=== PATIENT | male | born 1955 | race African-American/Black ===

== ENCOUNTER 2018-10-08 23:39 | Inpatient (IN) | payer MEDICARE, MEDICAID ==
[~2018-10-08] VITALS: Ht 200.7 cm; Wt 160.1 kg
[2018-10-09] MEDS ORDERED: SODIUM CHLORIDE 0.9% 1,000 ML IV ONE (07:50)
[2018-10-09] MEDS ORDERED: KETOROLAC 30MG/ML VIAL IV STA (07:50)
[2018-10-09 09:28] LABS: CHLORIDE 102 mEq/L (98-107); INR 1.2; PROTHROMBIN TIME 12.2 sec (9.1-11.1)
[2018-10-09 09:30] LABS: HEMATOCRIT. 22.8 % (42.0-52.0); HEMOGLOBIN. 7.2 g/dL (14.0-18.0); MEAN CORPUSCULAR HEMOGLOBIN 20.3 pg (28.0-32.0); MEAN CORPUSCULAR VOLUME 64.5 fL (80.0-94.0); MEAN PLATELET VOLUME 7.4 fl (7.4-10.4); PLATELET 584 x1000/uL (130-400); RED BLOOD CELL COUNT 3.53 mill/uL (4.7-6.1); RED CELL DISTRIBUTION WIDTH 18.4 % (11.6-14.6)
[2018-10-09] MEDS ORDERED: IOHEXOL-300 100 ML BOTTLE ONE (11:39)
[2018-10-09 12:21] LABS: NUCLEATED RED BLOOD CELLS 1 /100 WBC
[2018-10-09 12:23] LABS: PLATELET ESTIMATE INCREASED
[2018-10-09] MEDS ORDERED: ONDANSETRON HCL 4MG/2ML INJ IV PRN (12:45)
[2018-10-09] MEDS ORDERED: ACETAMINOPHEN 650MG SUPP PR PRN (12:45)
[2018-10-09] MEDS ORDERED: HYDROCODONE/ACETAMINOPHEN 5/325MG TABLET PO PRN (12:45)
[2018-10-09] MEDS ORDERED: HYDROCODONE/ACETAMINOPHEN 10/325MG TABLET PO PRN (12:45)
[2018-10-09] MEDS ORDERED: MAGNESIUM/ALUMINUM HYDROXIDE/SIMETHICONE 30ML UDC PO PRN (12:45)
[2018-10-09] MEDS ORDERED: DIPHENHYDRAMINE 50MG/ML VIAL IV PRN (12:45)
[2018-10-09] MEDS ORDERED: ACETAMINOPHEN 325MG TABLET PO PRN (12:45)
[2018-10-09] MEDS ORDERED: DOCUSATE SODIUM 100MG CAPSULE PO PRN (12:45)
[2018-10-09] MEDS ORDERED: ACETAMINOPHEN 650MG/20.3ML UDC GT PRN (12:45)
[2018-10-09] MEDS ORDERED: IPRATROPIUM/ALBUTEROL 0.5-3(2.5)MG/3ML NEB INH PRN (12:45)
[2018-10-09] MEDS ORDERED: CLONIDINE 0.1MG TABLET PO PRN (12:45)
[2018-10-09] MEDS ORDERED: GUAIFENESIN 200MG/10ML SUGAR FREE UDC PO PRN (12:45)
[2018-10-09 16:00] VITALS: BP 132/95
[2018-10-09] MEDS ORDERED: IBUP-2030 PO (18:21)
[2018-10-09] MEDS ORDERED: FERR-71 MT (18:22)
[2018-10-09] MEDS: FUROSEMIDE 40MG/4ML VIAL IV SCH (18:37)
[2018-10-09 19:04] VITALS: BP 132/95
[2018-10-09 20:00] VITALS: BP 112/74
[2018-10-09] MEDS ORDERED: NA PHOS,M-B/NA PHOS,DI-BA ENEMA 118ML PR PRN (21:00)
[2018-10-09] MEDS: SODIUM CHLORIDE 0.9% INJ 3ML FLUSH IVF SCH (21:00)
[2018-10-09 23:56] LABS: CLARITY URINE TURBID (CLEAR); COLOR URINE YELLOW (YELLOW); KETONES URINE NEGATIVE (NEGATIVE); LEUKOCYTE ESTERASE URINE NEGATIVE (NEGATIVE); NITRITE URINE POSITIVE (NEGATIVE); OCCULT BLOOD URINE NEGATIVE (NEGATIVE); PH URINE >=9.0 (4.5-8.0); PROTEIN URINE 2+ (NEGATIVE); SPECIFIC GRAVITY URINE 1.019 (1.005-1.030)
[2018-10-10] VITALS: BP 114/76
[2018-10-10 00:13] LABS: *AMPHETAMINES SCREEN URINE NEGATIVE (NEGATIVE); *BARBITURATES SCREEN URINE NEGATIVE (NEGATIVE); *BENZODIAZEPINES SCREEN URINE NEGATIVE (NEGATIVE); *COCAINE SCREEN URINE NEGATIVE (NEGATIVE)
[2018-10-10 00:14] LABS: CANNABINOID URINE SCREEN NEGATIVE (NEGATIVE); METHADONE URINE SCREEN NEGATIVE (NEGATIVE); OPIATES URINE SCREEN NEGATIVE (NEGATIVE); PHENCYCLIDINE URINE SCREEN NEGATIVE (NEGATIVE)
[2018-10-10] MEDS ORDERED: PHENYLEPHRINE/SHK LV/MO/PET,WH RECTAL OINT 28GM PR PRN (01:00)
[2018-10-10 04:00] VITALS: BP 116/81
[2018-10-10] MEDS: SODIUM CHLORIDE 0.9% INJ 3ML FLUSH IVF SCH (06:57)
[2018-10-10] MEDS: FUROSEMIDE 40MG/4ML VIAL IV SCH (09:37)
[2018-10-10 10:00] LABS: CHLORIDE 103 mEq/L (98-107)
[2018-10-10 10:03] LABS: HEMATOCRIT. 22.7 % (42.0-52.0); HEMOGLOBIN. 7.1 g/dL (14.0-18.0); MEAN CORPUSCULAR HEMOGLOBIN 20.1 pg (28.0-32.0); MEAN PLATELET VOLUME 7.5 fl (7.4-10.4); PLATELET 593 x1000/uL (130-400); RED BLOOD CELL COUNT 3.55 mill/uL (4.7-6.1); RED CELL DISTRIBUTION WIDTH 18.9 % (11.6-14.6)
[2018-10-10 10:14] LABS: HDL CHOLESTEROL 54 mg/dL (40-59); LDL CHOLESTEROL 99 mg/dL (5-100)
[2018-10-10 12:14] VITALS: BP 108/72
[2018-10-10 15:00] VITALS: BP 108/72
[2018-10-11 10:55] LABS: PLATELET ESTIMATE INCREASED
== END 2018-10-10 16:15 | disposition home or self-care (01) | DRG 300 ==
LOC: ER 23:40 → 5WST 10-09 12:30 → ENRESERV 10-09 16:24
PROVIDERS: ADMIT Family Medicine; ATTEND Family Medicine
DX: I87.2 Venous insufficiency (chronic) (peripheral) (principal); C20 Malignant neoplasm of rectum; C64.9 Malignant neoplasm of unspecified kidney, except renal pelvis; C78.7 Secondary malignant neoplasm of liver and intrahepatic bile duct; E44.0 Moderate protein-calorie malnutrition; D63.0 Anemia in neoplastic disease; E66.01 Morbid (severe) obesity due to excess calories; I25.10 Atherosclerotic heart disease of native coronary artery without angina pectoris; I73.9 Peripheral vascular disease, unspecified; J45.909 Unspecified asthma, uncomplicated; K42.9 Umbilical hernia without obstruction or gangrene; Z89.421 Acquired absence of other right toe(s); Z93.2 Ileostomy status; Z93.3 Colostomy status; Z68.39 Body mass index [BMI] 39.0-39.9, adult
CPT/HCPCS: 36415; 71045; 74177; 80061; 80305; 83880; 84484; 93005; 93922; 93971; 96361; 96374; 96375; 99291; J1885; J1940; J7030; Q9967

== ENCOUNTER 2018-11-11 23:54 | Emergency (ER) | payer MEDICARE, MEDICAID ==
[~2018-11-11] VITALS: Ht 195.6 cm; Wt 70.0 kg
[~2018-11-11 23:54] MED LIST: FERR-71 MT; IBUP-2030 PO
[2018-11-12 05:20] LABS: HEMATOCRIT. 29.3 % (42.0-52.0); HEMOGLOBIN. 9.2 g/dL (14.0-18.0); MEAN CORPUSCULAR HEMOGLOBIN 21.9 pg (28.0-32.0); MEAN CORPUSCULAR VOLUME 69.6 fL (80.0-94.0); MEAN PLATELET VOLUME 7.3 fl (7.4-10.4); PLATELET 557 x1000/uL (130-400); RED BLOOD CELL COUNT 4.21 mill/uL (4.7-6.1); RED CELL DISTRIBUTION WIDTH 28.3 % (11.6-14.6)
[2018-11-12 05:22] LABS: CHLORIDE 105 mEq/L (98-107)
[2018-11-12 05:24] LABS: INR 1.3; PROTHROMBIN TIME 12.6 sec (9.1-11.1)
[2018-11-12 06:20] LABS: CLARITY URINE CLEAR (CLEAR); COLOR URINE YELLOW (YELLOW); KETONES URINE NEGATIVE (NEGATIVE); LEUKOCYTE ESTERASE URINE 1+ (NEGATIVE); NITRITE URINE NEGATIVE (NEGATIVE); OCCULT BLOOD URINE TRACE (NEGATIVE); PROTEIN URINE 1+ (NEGATIVE); SPECIFIC GRAVITY URINE 1.015 (1.005-1.030); UROBILINOGEN URINE 0.2 E.U./dL (0.2-1.0)
[2018-11-12 06:42] VITALS: BP 124/81
[2018-11-12 10:03] LABS: PLATELET ESTIMATE INCREASED
== END 2018-11-12 06:49 | disposition home or self-care (01) ==
LOC: ER 23:54
DX: R60.9 Edema, unspecified (principal); D64.9 Anemia, unspecified; J45.909 Unspecified asthma, uncomplicated; I10 Essential (primary) hypertension; Z93.3 Colostomy status; Z98.890 Other specified postprocedural states
CPT/HCPCS: 36415; 83880; 87077; 87186; 93005; 93971; 99284

== ENCOUNTER 2019-01-15 18:39 | Inpatient (IN) | payer MEDICARE, MEDICAID ==
[~2019-01-15] VITALS: Ht 195.6 cm; Wt 56.2 kg
[2019-01-15] MEDS ORDERED: SODIUM CHLORIDE 0.9% 1,000 ML IV ONE ×2 (19:07→22:45)
[2019-01-15] MEDS ORDERED: ONDANSETRON HCL 4MG/2ML INJ IV STA (19:07)
[2019-01-15] MEDS ORDERED: MORPHINE SULFATE 4 MG/ML CPJ (NOT FOR IM USE) IV ONE (20:30)
[2019-01-15 23:38] LABS: CHLORIDE 107 mEq/L (98-107)
[2019-01-16] MEDS ORDERED: SODIUM CHLORIDE 0.9% 1,000 ML IV ONE (00:15)
[2019-01-16 00:18] LABS: HEMATOCRIT. 31.3 % (42.0-52.0); HEMOGLOBIN. 9.9 g/dL (14.0-18.0); MEAN CORPUSCULAR VOLUME 79.2 fL (80.0-94.0); MEAN PLATELET VOLUME 7.5 fl (7.4-10.4); PLATELET 579 x1000/uL (130-400); RED BLOOD CELL COUNT 3.95 mill/uL (4.7-6.1)
[2019-01-16 00:49] LABS: PLATELET ESTIMATE INCREASED
[2019-01-16] MEDS ORDERED: DIPHENHYDRAMINE 50MG/ML VIAL IV PRN (01:15)
[2019-01-16] MEDS ORDERED: IPRATROPIUM/ALBUTEROL 0.5-3(2.5)MG/3ML NEB INH PRN (01:15)
[2019-01-16] MEDS ORDERED: LORAZEPAM 2MG/ML CPJ IV PRN (01:15)
[2019-01-16] MEDS ORDERED: ONDANSETRON HCL 4MG/2ML INJ IV PRN (01:15)
[2019-01-16] MEDS ORDERED: ENOXAPARIN 40MG/0.4ML SYR SUBCUT NR (09:30)
[2019-01-16] MEDS ORDERED: PANTOPRAZOLE SODIUM 40 MG/VIAL IV NR (09:30)
[2019-01-16] MEDS: DEXT 5%/0.9% NACL 1,000 ML IV SCH ×5 (10:09→23:50)
[2019-01-16 12:46] LABS: CLARITY URINE CLEAR (CLEAR); COLOR URINE YELLOW (YELLOW); KETONES URINE NEGATIVE (NEGATIVE); LEUKOCYTE ESTERASE URINE NEGATIVE (NEGATIVE); NITRITE URINE POSITIVE (NEGATIVE); OCCULT BLOOD URINE NEGATIVE (NEGATIVE); PROTEIN URINE NEGATIVE (NEGATIVE); SPECIFIC GRAVITY URINE 1.022 (1.005-1.030); UROBILINOGEN URINE 0.2 E.U./dL (0.2-1.0)
[2019-01-16 13:04] VITALS: BP 125/75
[2019-01-16] MEDS: HYDROMORPHONE HCL/PF 2MG/ML CPJ IV PRN (15:32)
[2019-01-16 16:00] VITALS: BP 115/79
[2019-01-16 20:00] VITALS: BP 104/61
[2019-01-17] VITALS: BP 105/71
[2019-01-17 04:00] VITALS: BP 110/77
[2019-01-17 05:34] LABS: HEMATOCRIT. 29.1 % (42.0-52.0); HEMOGLOBIN. 9.1 g/dL (14.0-18.0); MEAN CORPUSCULAR HEMOGLOBIN 25.4 pg (28.0-32.0); MEAN CORPUSCULAR VOLUME 81.1 fL (80.0-94.0); MEAN PLATELET VOLUME 7.7 fl (7.4-10.4); PLATELET 464 x1000/uL (130-400); RED BLOOD CELL COUNT 3.59 mill/uL (4.7-6.1); RED CELL DISTRIBUTION WIDTH 23.5 % (11.6-14.6)
[2019-01-17 07:01] LABS: CHLORIDE 112 mEq/L (98-107)
[2019-01-17 07:07] LABS: PHOSPHORUS 2.1 mg/dL (2.5-4.9)
[2019-01-17 08:00] VITALS: BP 98/56
[2019-01-17] MEDS: DEXT 5%/0.9% NACL 1,000 ML IV SCH (09:11)
[2019-01-17] MEDS: PANTOPRAZOLE SODIUM 40 MG/VIAL IV SCH (09:11)
[2019-01-17] MEDS: ENOXAPARIN 40MG/0.4ML SYR SUBCUT SCH (09:22)
[2019-01-17] MEDS ORDERED: MAGNESIUM 2 G PREMIX 50 ML IV SCH (11:00)
[2019-01-17] MEDS ORDERED: POTASSIUM PHOS,M-BASIC-D-BASIC 20 MMOL in DEXT 5% WATER 243.3333 ML IV SCH (11:30)
[2019-01-17 12:00] VITALS: BP 100/76
[2019-01-17 14:12] LABS: PLATELET ESTIMATE INCREASED
[2019-01-17 16:00] VITALS: BP 95/67
[2019-01-17 20:00] VITALS: BP 123/75
[2019-01-17] MEDS: HYDROMORPHONE HCL/PF 2MG/ML CPJ IV PRN (21:55)
[2019-01-18] VITALS: BP 112/81
[2019-01-18] MEDS: DEXT 5%/0.9% NACL 1,000 ML IV SCH ×3 (01:24→20:46)
[2019-01-18 04:00] VITALS: BP 102/68
[2019-01-18 08:00] VITALS: BP 110/78
[2019-01-18] MEDS: PANTOPRAZOLE SODIUM 40 MG/VIAL IV SCH (09:05)
[2019-01-18] MEDS: ENOXAPARIN 40MG/0.4ML SYR SUBCUT SCH (09:05)
[2019-01-18 12:00] VITALS: BP 100/98
[2019-01-18 12:12] LABS: CHLORIDE 111 mEq/L (98-107)
[2019-01-18 12:17] LABS: PHOSPHORUS 2.1 mg/dL (2.5-4.9)
[2019-01-18 16:00] VITALS: BP 110/70
[2019-01-18 20:00] VITALS: BP 105/72
[2019-01-18] MEDS: HYDROMORPHONE HCL/PF 2MG/ML CPJ IV PRN (20:25)
[2019-01-19] VITALS: BP 110/76
[2019-01-19] MEDS ORDERED: POTASSIUM PHOS,M-BASIC-D-BASIC 20 MMOL in DEXT 5% WATER 243.3333 ML IV NR (02:00)
[2019-01-19 03:51] VITALS: BP 124/79
[2019-01-19 08:00] VITALS: BP 110/73
[2019-01-19 08:02] VITALS: BP 110/73
[2019-01-19 08:30] VITALS: BP 110/73
== END 2019-01-19 09:00 | disposition home or self-care (01) | DRG 682 ==
LOC: ER 18:52 → 8WST 01-16 00:43 → EDBEDREQTM 01-16 00:47 → EDBEDREQ 01-16 00:47 → EDBEDREQDT 01-16 00:47 → ENRESERV 01-16 11:50
PROVIDERS: ADMIT Internal Medicine; ATTEND Internal Medicine
DX: N17.9 Acute kidney failure, unspecified (principal); E43 Unspecified severe protein-calorie malnutrition; E87.1 Hypo-osmolality and hyponatremia; C20 Malignant neoplasm of rectum; Z68.1 Body mass index [BMI] 19.9 or less, adult; E86.0 Dehydration; D63.8 Anemia in other chronic diseases classified elsewhere; E87.5 Hyperkalemia; I10 Essential (primary) hypertension; J45.909 Unspecified asthma, uncomplicated; Z93.3 Colostomy status; Z79.1 Long term (current) use of non-steroidal anti-inflammatories (NSAID); Z93.2 Ileostomy status; Z79.899 Other long term (current) drug therapy; Z87.891 Personal history of nicotine dependence
CPT/HCPCS: 36415; 80048; 83605; 83735; 84100; 84132; 93005; 99285; C9113; J1170; J1650; J2270; J2405; J3475; J3490; J7030; J7042; J7060

== ENCOUNTER 2019-02-17 10:42 | Inpatient (IN) | payer MEDICARE, MEDICAID ==
[~2019-02-17] VITALS: Ht 175.3 cm; Wt 79.4 kg
[2019-02-17] VITALS (43 sets, daily range): BP systolic 65–135; BP diastolic 44–80
[2019-02-17] MEDS ORDERED: SODIUM CHLORIDE 0.9% 1,000 ML IV ONE (11:03)
[2019-02-17] MEDS ORDERED: DEXTROSE 50% WATER 50ML SYRINGE IV ONE ×3 (11:07→11:15)
[2019-02-17] MEDS ORDERED: FAMOTIDINE 20MG/2ML VIAL IV ONE (11:15)
[2019-02-17] MEDS ORDERED: SUCCINYLCHOLINE CHLORIDE 200MG/10ML IV ONE (11:15)
[2019-02-17] MEDS ORDERED: ETOMIDATE 2MG/ML 10ML VIAL IV ONE (11:15)
[2019-02-17 12:05] LABS: MEAN CORPUSCULAR HEMOGLOBIN 26.7 pg (28.0-32.0); RED BLOOD CELL COUNT 1.94 mill/uL (4.7-6.1); RED CELL DISTRIBUTION WIDTH 18.7 % (11.6-14.6)
[2019-02-17 12:11] LABS: CHLORIDE 119 mEq/L (98-107)
[2019-02-17 12:14] LABS: INR 2.7; PARTIAL THROMBOPLASTIN TIME 47.9 sec (23.4-31.0); PROTHROMBIN TIME 26.3 sec (9.6-11.0)
[2019-02-17 12:15] LABS: CLARITY URINE CLOUDY (CLEAR); COLOR URINE YELLOW (YELLOW); ETHANOL BLOOD < 10 mg/dL; KETONES URINE NEGATIVE (NEGATIVE); LEUKOCYTE ESTERASE URINE NEGATIVE (NEGATIVE); NITRITE URINE NEGATIVE (NEGATIVE); OCCULT BLOOD URINE 3+ (NEGATIVE); PROTEIN URINE NEGATIVE (NEGATIVE); SPECIFIC GRAVITY URINE 1.015 (1.005-1.030); UROBILINOGEN URINE 0.2 E.U./dL (0.2-1.0)
[2019-02-17 12:16] LABS: HEMATOCRIT. 15.7 % (42.0-52.0); HEMOGLOBIN. 5.2 g/dL (14.0-18.0)
[2019-02-17 12:23] LABS: *AMPHETAMINES SCREEN URINE NEGATIVE (NEGATIVE); CANNABINOID URINE SCREEN NEGATIVE (NEGATIVE); OPIATES URINE SCREEN NEGATIVE (NEGATIVE); PHENCYCLIDINE URINE SCREEN NEGATIVE (NEGATIVE)
[2019-02-17 12:24] LABS: *BARBITURATES SCREEN URINE NEGATIVE (NEGATIVE); *BENZODIAZEPINES SCREEN URINE NEGATIVE (NEGATIVE); *COCAINE SCREEN URINE PRESUMTIVE POSITIVE (NEGATIVE); METHADONE URINE SCREEN NEGATIVE (NEGATIVE)
[2019-02-17 12:58] LABS: BG BASE EXCESS -11.5 mmol/L (-2.0-2.0); BG CARBOXYHEMOGLOBIN 1.3 % (0.5-1.5); BG DEOXYHEMOGLOBIN 0.2 % (0.0-5.0); BG FRACTION INSPIRED OXYGEN 100; BG METHEMOGLOBIN 0.5 % (0.0-1.5); BG OXYGEN SATURATION 99.8 % (92.0-98.5); BG PCO2 29.8 mmHg (35.0-45.0); BG PO2 > 602.7 mmHg (75.0-100.0); BG SAMPLE SITE RIGHT RADIAL; BG TIDAL VOLUME(mL) 500 mL; BG TOTAL HEMOGLOBIN 6.2 g/dL (12.0-18.0); BG VENT MODE VENT - A/C; BG VENT RATE 16 set
[2019-02-17 12:59] LABS: NUCLEATED RED BLOOD CELLS 4 /100 WBC
[2019-02-17] MEDS ORDERED: PANTOPRAZOLE SODIUM 40 MG/VIAL IV NR (13:00)
[2019-02-17] MEDS ORDERED: PHYTONADIONE 10 MG in DEXTROSE 5% WATER 50 ML IV ONE (13:00)
[2019-02-17 13:01] LABS: MEAN PLATELET VOLUME 9.5 fl (7.4-10.4); PLATELET 71 x1000/uL (130-400); PLATELET ESTIMATE DECREASED
[2019-02-17] MEDS: PANTOPRAZOLE 80 MG in SODIUM CHLORIDE 0.9% 100 ML IV SCH ×2 (14:00→19:39)
[2019-02-17] MEDS ORDERED: DOCUSATE SODIUM 100MG CAPSULE PO PRN (14:30)
[2019-02-17] MEDS ORDERED: IPRATROPIUM/ALBUTEROL 0.5-3(2.5)MG/3ML NEB INH PRN (14:30)
[2019-02-17] MEDS ORDERED: ACETAMINOPHEN 650MG SUPP PR PRN (14:30)
[2019-02-17] MEDS ORDERED: ONDANSETRON HCL 4MG/2ML INJ IV PRN (14:30)
[2019-02-17] MEDS ORDERED: DIPHENHYDRAMINE 50MG/ML VIAL IV PRN (14:30)
[2019-02-17] MEDS ORDERED: GUAIFENESIN 200MG/10ML SUGAR FREE UDC PO PRN (14:30)
[2019-02-17] MEDS ORDERED: PHYTONADIONE 10MG/ML AMP ONE (14:37)
[2019-02-17] MEDS ORDERED: PROPOFOL 10MG/ML 100ML 100 ML IV SCH (14:45)
[2019-02-17] MEDS: DEXT 5%/0.45% NACL 1000ML 1,000 ML IV SCH (15:00)
[2019-02-17 15:04] LABS: PHOSPHORUS 4.9 mg/dL (2.5-4.9)
[2019-02-17 16:12] LABS: BG BASE EXCESS -9.1 mmol/L (-2.0-2.0); BG CARBOXYHEMOGLOBIN 0.8 % (0.5-1.5); BG DEOXYHEMOGLOBIN 0.7 % (0.0-5.0); BG FRACTION INSPIRED OXYGEN 50; BG HCO3 ACT 15.4 mmol/L (22.0-26.0); BG METHEMOGLOBIN 0.5 % (0.0-1.5); BG OXYGEN SATURATION 99.3 % (92.0-98.5); BG PCO2 27.6 mmHg (35.0-45.0); BG PH 7.365 (7.350-7.450); BG PO2 220.7 mmHg (75.0-100.0); BG SAMPLE SITE RIGHT BRACHIAL; BG TIDAL VOLUME(mL) 500 mL; BG TOTAL HEMOGLOBIN 6.1 g/dL (12.0-18.0); BG VENT MODE VENT - A/C; BG VENT RATE 16 set
[2019-02-17] MEDS ORDERED: PROPOFOL 10MG/ML 100ML 100 ML IV PRN (16:45)
[2019-02-17] MEDS ORDERED: IPRATROPIUM/ALBUTEROL 0.5-3(2.5)MG/3ML NEB HHN PRN (16:45)
[2019-02-17] MEDS: NOREPINEPHRINE 32 MG in DEXT 5% WATER 468 ML IV PRN (18:11)
[2019-02-17] MEDS: CEFEPIME 1,000 MG in DEXTROSE 5% WATER 50 ML IV SCH (18:56)
[2019-02-17] MEDS: METRONIDAZOLE 500 MG PREMIX 100 ML IV SCH (19:38)
[2019-02-17] MEDS: IPRATROPIUM/ALBUTEROL 0.5-3(2.5)MG/3ML NEB HHN SCH (20:10)
[2019-02-17] MEDS: DEXTROSE 50% WATER 50ML SYRINGE IV PRN (23:17)
[2019-02-17] MEDS: BLOOD SUGAR DIAGNOSTIC STRIP TEST SCH (23:17)
[2019-02-17 23:43] LABS: HEMATOCRIT. 32.7 % (42.0-52.0); HEMOGLOBIN. 11.1 g/dL (14.0-18.0); MEAN CORPUSCULAR HEMOGLOBIN 28.6 pg (28.0-32.0); MEAN CORPUSCULAR VOLUME 83.8 fL (80.0-94.0); RED CELL DISTRIBUTION WIDTH 17.2 % (11.6-14.6)
[2019-02-18] VITALS (100 sets, daily range): BP systolic 66–117; BP diastolic 41–76
[2019-02-18 00:03] LABS: CREATINE KINASE MB FRACTION 13.4 ng/mL (0.5-3.6)
[2019-02-18] MEDS: IPRATROPIUM/ALBUTEROL 0.5-3(2.5)MG/3ML NEB HHN SCH ×4 (00:05→20:13)
[2019-02-18 01:36] LABS: MEAN PLATELET VOLUME 10.3 fl (7.4-10.4)
[2019-02-18 01:37] LABS: PLATELET 101 x1000/uL (130-400)
[2019-02-18 02:08] LABS: ATYPICAL LYMPHOCYTES 1; NUCLEATED RED BLOOD CELLS 7 /100 WBC; PLATELET ESTIMATE SLIGHTLY DECREASED
[2019-02-18] MEDS: METRONIDAZOLE 500 MG PREMIX 100 ML IV SCH ×3 (03:10→19:28)
[2019-02-18] MEDS: CEFEPIME 1,000 MG in DEXTROSE 5% WATER 50 ML IV SCH ×2 (05:19→17:14)
[2019-02-18 05:21] LABS: HEMATOCRIT. 30.4 % (42.0-52.0); HEMOGLOBIN. 10.5 g/dL (14.0-18.0); MEAN CORPUSCULAR HEMOGLOBIN 28.6 pg (28.0-32.0); RED BLOOD CELL COUNT 3.66 mill/uL (4.7-6.1); RED CELL DISTRIBUTION WIDTH 17.1 % (11.6-14.6)
[2019-02-18 05:25] LABS: CHLORIDE 118 mEq/L (98-107)
[2019-02-18 05:33] LABS: LDL CHOLESTEROL 19 mg/dL (5-100)
[2019-02-18 05:34] LABS: HDL CHOLESTEROL 87 mg/dL (40-59)
[2019-02-18 05:46] LABS: CREATINE KINASE 1080 IU/L (39-308)
[2019-02-18] MEDS: DEXTROSE 50% WATER 50ML SYRINGE IV PRN ×2 (05:49→19:34)
[2019-02-18] MEDS: BLOOD SUGAR DIAGNOSTIC STRIP TEST SCH ×5 (05:49→23:38)
[2019-02-18] MEDS: PANTOPRAZOLE 80 MG in SODIUM CHLORIDE 0.9% 100 ML IV SCH ×2 (06:53→17:14)
[2019-02-18] MEDS: DEXT 5%/0.45% NACL 1000ML 1,000 ML IV SCH (08:17)
[2019-02-18 08:22] LABS: NUCLEATED RED BLOOD CELLS 6 /100 WBC; PLATELET ESTIMATE DECREASED
[2019-02-18 08:26] LABS: PLATELET 85 x1000/uL (130-400)
[2019-02-18 08:53] LABS: BG BASE EXCESS -9.8 mmol/L (-2.0-2.0); BG CARBOXYHEMOGLOBIN 0.3 % (0.5-1.5); BG DEOXYHEMOGLOBIN 1.1 % (0.0-5.0); BG FRACTION INSPIRED OXYGEN 40; BG HCO3 ACT 14.4 mmol/L (22.0-26.0); BG METHEMOGLOBIN 0.3 % (0.0-1.5); BG OXYGEN SATURATION 98.9 % (92.0-98.5); BG OXYHEMOGLOBIN 98.3 % (94.0-97.0); BG PCO2 26.8 mmHg (35.0-45.0); BG PH 7.348 (7.350-7.450); BG PO2 178.6 mmHg (75.0-100.0); BG SAMPLE SITE RIGHT RADIAL; BG TIDAL VOLUME(mL) 500 mL; BG TOTAL HEMOGLOBIN 11.1 g/dL (12.0-18.0); BG VENT MODE VENT - A/C; BG VENT RATE 16 set
[2019-02-18] MEDS ORDERED: PROPOFOL 10MG/ML 100ML 100 ML IV PRN (09:45)
[2019-02-18] MEDS: DEXT 10% WATER 1,000 ML IV SCH (09:52)
[2019-02-18 12:23] LABS: HEMATOCRIT. 30.5 % (42.0-52.0); HEMOGLOBIN. 10.5 g/dL (14.0-18.0); MEAN CORPUSCULAR HEMOGLOBIN 28.6 pg (28.0-32.0); MEAN CORPUSCULAR VOLUME 83.2 fL (80.0-94.0); MEAN PLATELET VOLUME 9.8 fl (7.4-10.4); PLATELET 81 x1000/uL (130-400); RED BLOOD CELL COUNT 3.66 mill/uL (4.7-6.1); RED CELL DISTRIBUTION WIDTH 17.2 % (11.6-14.6)
[2019-02-18] MEDS ORDERED: PHENYLEPHRINE 40 MG in DEXT 5% WATER 496 ML IV PRN (13:30)
[2019-02-18 13:42] LABS: NUCLEATED RED BLOOD CELLS 1 /100 WBC; PLATELET ESTIMATE DECREASED
[2019-02-18] MEDS: NOREPINEPHRINE 32 MG in DEXT 5% WATER 468 ML IV PRN (20:56)
[2019-02-19] VITALS (90 sets, daily range): BP systolic 76–120; BP diastolic 52–89
[2019-02-19] MEDS: IPRATROPIUM/ALBUTEROL 0.5-3(2.5)MG/3ML NEB HHN SCH ×4 (02:10→19:58)
[2019-02-19] MEDS: DEXT 10% WATER 1,000 ML IV SCH ×2 (03:29→16:55)
[2019-02-19] MEDS: METRONIDAZOLE 500 MG PREMIX 100 ML IV SCH ×3 (03:29→20:23)
[2019-02-19] MEDS: BLOOD SUGAR DIAGNOSTIC STRIP TEST SCH ×5 (03:30→20:22)
[2019-02-19] MEDS: PANTOPRAZOLE 80 MG in SODIUM CHLORIDE 0.9% 100 ML IV SCH ×2 (03:31→15:13)
[2019-02-19] MEDS: CEFEPIME 1,000 MG in DEXTROSE 5% WATER 50 ML IV SCH ×2 (05:22→16:55)
[2019-02-19 06:05] LABS: HEMATOCRIT. 28.3 % (42.0-52.0); HEMOGLOBIN. 9.6 g/dL (14.0-18.0); MEAN CORPUSCULAR HEMOGLOBIN 28.1 pg (28.0-32.0); MEAN CORPUSCULAR VOLUME 82.7 fL (80.0-94.0); MEAN PLATELET VOLUME 9.8 fl (7.4-10.4); PLATELET 58 x1000/uL (130-400); RED BLOOD CELL COUNT 3.42 mill/uL (4.7-6.1); RED CELL DISTRIBUTION WIDTH 17.3 % (11.6-14.6)
[2019-02-19 08:43] LABS: BG BASE EXCESS -9.8 mmol/L (-2.0-2.0); BG CARBOXYHEMOGLOBIN 0.3 % (0.5-1.5); BG DEOXYHEMOGLOBIN 0.9 % (0.0-5.0); BG FRACTION INSPIRED OXYGEN 40; BG HCO3 ACT 14.7 mmol/L (22.0-26.0); BG METHEMOGLOBIN 0.2 % (0.0-1.5); BG OXYGEN SATURATION 99.1 % (92.0-98.5); BG OXYHEMOGLOBIN 98.6 % (94.0-97.0); BG PCO2 27.9 mmHg (35.0-45.0); BG PH 7.341 (7.350-7.450); BG PO2 222.2 mmHg (75.0-100.0); BG SAMPLE SITE RIGHT RADIAL; BG TIDAL VOLUME(mL) 500 mL; BG TOTAL HEMOGLOBIN 9.8 g/dL (12.0-18.0); BG VENT MODE VENT - A/C; BG VENT RATE 16 set
[2019-02-19 11:32] LABS: NUCLEATED RED BLOOD CELLS 1 /100 WBC; PLATELET ESTIMATE DECREASED
[2019-02-19] MEDS ORDERED: PROPOFOL 10MG/ML 100ML 100 ML IV PRN (13:00)
[2019-02-19] MEDS: NOREPINEPHRINE 32 MG in DEXT 5% WATER 468 ML IV PRN (23:48)
[2019-02-20] VITALS (90 sets, daily range): BP systolic 61–123; BP diastolic 46–83
[2019-02-20] MEDS: PANTOPRAZOLE 80 MG in SODIUM CHLORIDE 0.9% 100 ML IV SCH ×3 (00:55→22:43)
[2019-02-20] MEDS: IPRATROPIUM/ALBUTEROL 0.5-3(2.5)MG/3ML NEB HHN SCH ×4 (01:42→20:46)
[2019-02-20] MEDS: METRONIDAZOLE 500 MG PREMIX 100 ML IV SCH ×3 (04:57→20:36)
[2019-02-20] MEDS: BLOOD SUGAR DIAGNOSTIC STRIP TEST SCH ×6 (04:58→20:05)
[2019-02-20 06:11] LABS: CHLORIDE 115 mEq/L (98-107); HEMATOCRIT. 30.5 % (42.0-52.0); HEMOGLOBIN. 10.5 g/dL (14.0-18.0); MEAN CORPUSCULAR HEMOGLOBIN 29.1 pg (28.0-32.0); MEAN CORPUSCULAR VOLUME 84.7 fL (80.0-94.0); MEAN PLATELET VOLUME 9.1 fl (7.4-10.4); RED CELL DISTRIBUTION WIDTH 17.3 % (11.6-14.6)
[2019-02-20 06:15] LABS: PLATELET 35 x1000/uL (130-400)
[2019-02-20] MEDS: CEFEPIME 1,000 MG in DEXTROSE 5% WATER 50 ML IV SCH ×2 (06:24→16:57)
[2019-02-20 07:58] LABS: BG BASE EXCESS -9.3 mmol/L (-2.0-2.0); BG CARBOXYHEMOGLOBIN 0.2 % (0.5-1.5); BG DEOXYHEMOGLOBIN 0.9 % (0.0-5.0); BG METHEMOGLOBIN 0.2 % (0.0-1.5); BG OXYGEN SATURATION 99.1 % (92.0-98.5); BG OXYHEMOGLOBIN 98.7 % (94.0-97.0); BG PCO2 27.5 mmHg (35.0-45.0); BG PH 7.354 (7.350-7.450); BG PO2 230.9 mmHg (75.0-100.0); BG SAMPLE SITE RIGHT BRACHIAL; BG TIDAL VOLUME(mL) 500 mL; BG TOTAL HEMOGLOBIN 9.8 g/dL (12.0-18.0); BG VENT MODE VENT - A/C; BG VENT RATE 16 set
[2019-02-20] MEDS: DEXT 5%/0.45% NACL 1000ML 1,000 ML IV SCH ×2 (09:04→16:05)
[2019-02-20 09:15] LABS: PLATELET ESTIMATE MARKEDLY DECREASED
[2019-02-20] MEDS ORDERED: FOLIC ACID 1 MG, THIAMINE HCL 100 MG, MVI, ADULT NO.1 10 ML in SODIUM CHLORIDE 0.9% 1,0... IV NR ×4 (13:30)
[2019-02-20 14:55] LABS: CLARITY URINE CLEAR (CLEAR); COLOR URINE YELLOW (YELLOW); KETONES URINE NEGATIVE (NEGATIVE); LEUKOCYTE ESTERASE URINE NEGATIVE (NEGATIVE); NITRITE URINE NEGATIVE (NEGATIVE); OCCULT BLOOD URINE 2+ (NEGATIVE); PROTEIN URINE NEGATIVE (NEGATIVE); SPECIFIC GRAVITY URINE 1.012 (1.005-1.030); UROBILINOGEN URINE 0.2 E.U./dL (0.2-1.0)
[2019-02-20] MEDS ORDERED: PROPOFOL 10MG/ML 100ML 100 ML IV PRN (15:45)
[2019-02-20] MEDS: DEXTROSE 50% WATER 50ML SYRINGE IV PRN (20:09)
[2019-02-20] MEDS ORDERED: TOTAL PARENTERAL NUTRITION 1,000 ML IV SCH (21:00)
[2019-02-21] VITALS (93 sets, daily range): BP systolic 90–127; BP diastolic 61–88
[2019-02-21] MEDS: BLOOD SUGAR DIAGNOSTIC STRIP TEST SCH ×6 (00:06→20:12)
[2019-02-21] MEDS: IPRATROPIUM/ALBUTEROL 0.5-3(2.5)MG/3ML NEB HHN SCH ×4 (02:35→20:24)
[2019-02-21] MEDS: METRONIDAZOLE 500 MG PREMIX 100 ML IV SCH ×3 (04:17→20:18)
[2019-02-21] MEDS: CEFEPIME 1,000 MG in DEXTROSE 5% WATER 50 ML IV SCH ×2 (05:17→17:41)
[2019-02-21 06:03] LABS: HEMATOCRIT. 27.2 % (42.0-52.0); HEMOGLOBIN. 9.2 g/dL (14.0-18.0); MEAN CORPUSCULAR HEMOGLOBIN 28.2 pg (28.0-32.0); MEAN CORPUSCULAR VOLUME 82.9 fL (80.0-94.0); MEAN PLATELET VOLUME 9.6 fl (7.4-10.4); RED BLOOD CELL COUNT 3.28 mill/uL (4.7-6.1); RED CELL DISTRIBUTION WIDTH 17.8 % (11.6-14.6)
[2019-02-21 06:07] LABS: CHLORIDE 118 mEq/L (98-107)
[2019-02-21 06:13] LABS: PHOSPHORUS 3.4 mg/dL (2.5-4.9)
[2019-02-21 06:16] LABS: CREATINE KINASE 366 IU/L (39-308)
[2019-02-21 07:29] LABS: PLATELET 43 x1000/uL (130-400)
[2019-02-21] MEDS: PANTOPRAZOLE 80 MG in SODIUM CHLORIDE 0.9% 100 ML IV SCH ×2 (09:06→18:58)
[2019-02-21] MEDS: FUROSEMIDE 20MG/2ML VIAL IVP SCH (09:07)
[2019-02-21 09:29] LABS: PLATELET ESTIMATE MARKEDLY DECREASED
[2019-02-21] MEDS ORDERED: PROPOFOL 10MG/ML 100ML 100 ML IV PRN (10:15)
[2019-02-21] MEDS: LORAZEPAM 2MG/ML CPJ IV PRN (11:39)
[2019-02-21 13:24] LABS: BG BASE EXCESS -8.5 mmol/L (-2.0-2.0); BG CARBOXYHEMOGLOBIN 0.3 % (0.5-1.5); BG DEOXYHEMOGLOBIN 2.7 % (0.0-5.0); BG FRACTION INSPIRED OXYGEN 35; BG HCO3 ACT 15.4 mmol/L (22.0-26.0); BG METHEMOGLOBIN 0.3 % (0.0-1.5); BG OXYGEN SATURATION 97.3 % (92.0-98.5); BG OXYHEMOGLOBIN 96.7 % (94.0-97.0); BG PH 7.374 (7.350-7.450); BG PO2 98.4 mmHg (75.0-100.0); BG PRESSURE SUPPORT 8; BG SAMPLE SITE RIGHT RADIAL; BG TOTAL HEMOGLOBIN 10.6 g/dL (12.0-18.0); BG VENT MODE VENT - CPAP
[2019-02-21] MEDS ORDERED: FAT EMULSIONS 500 ML IV SCH (21:00)
[2019-02-21] MEDS ORDERED: TOTAL PARENTERAL NUTRITION 1,200 ML IV SCH (21:00)
[2019-02-22] VITALS (96 sets, daily range): BP systolic 85–115; BP diastolic 51–76
[2019-02-22] MEDS: IPRATROPIUM/ALBUTEROL 0.5-3(2.5)MG/3ML NEB HHN SCH ×4 (01:02→21:21)
[2019-02-22] MEDS: PANTOPRAZOLE 80 MG in SODIUM CHLORIDE 0.9% 100 ML IV SCH ×2 (02:25→05:20)
[2019-02-22] MEDS: LORAZEPAM 2MG/ML CPJ IV PRN (02:29)
[2019-02-22] MEDS: BLOOD SUGAR DIAGNOSTIC STRIP TEST SCH ×4 (04:10→18:00)
[2019-02-22] MEDS: METRONIDAZOLE 500 MG PREMIX 100 ML IV SCH ×3 (04:14→20:31)
[2019-02-22] MEDS: CEFEPIME 1,000 MG in DEXTROSE 5% WATER 50 ML IV SCH ×2 (06:32→18:39)
[2019-02-22 07:03] LABS: CHLORIDE 118 mEq/L (98-107)
[2019-02-22 07:04] LABS: PHOSPHORUS 2.4 mg/dL (2.5-4.9)
[2019-02-22 07:24] LABS: RED BLOOD CELL COUNT 3.68 mill/uL (4.7-6.1)
[2019-02-22 07:25] LABS: HEMATOCRIT. 31.1 % (42.0-52.0); HEMOGLOBIN. 11.7 g/dL (14.0-18.0); MEAN CORPUSCULAR VOLUME 84.4 fL (80.0-94.0)
[2019-02-22 07:26] LABS: MEAN CORPUSCULAR HEMOGLOBIN 31.8 pg (28.0-32.0)
[2019-02-22 07:29] LABS: PLATELET 32 x1000/uL (130-400)
[2019-02-22 08:14] LABS: INR 1.7; PARTIAL THROMBOPLASTIN TIME 41.9 sec (23.4-31.0); PROTHROMBIN TIME 16.8 sec (9.6-11.0)
[2019-02-22 08:57] LABS: BG BASE EXCESS -12.1 mmol/L (-2.0-2.0); BG CARBOXYHEMOGLOBIN 0.6 % (0.5-1.5); BG DEOXYHEMOGLOBIN 2.8 % (0.0-5.0); BG HCO3 ACT 13.4 mmol/L (22.0-26.0); BG METHEMOGLOBIN 0.3 % (0.0-1.5); BG OXYGEN SATURATION 97.2 % (92.0-98.5); BG OXYHEMOGLOBIN 96.3 % (94.0-97.0); BG PCO2 29.5 mmHg (35.0-45.0); BG PH 7.274 (7.350-7.450); BG PO2 104.2 mmHg (75.0-100.0); BG SAMPLE SITE RIGHT BRACHIAL; BG TOTAL HEMOGLOBIN 12.1 g/dL (12.0-18.0); BG VENT MODE MASK - AEROSOL
[2019-02-22] MEDS ORDERED: SODIUM BICARBONATE 8.4% 1 MEQ/ML 50ML SYR IV SCH (09:00)
[2019-02-22] MEDS ORDERED: MORPHINE SULFATE 2 MG/ML CPJ (NOT FOR IM USE) IV PRN (09:15)
[2019-02-22] MEDS ORDERED: DEXTROSE 50% WATER 50ML SYRINGE IV PRN (09:15)
[2019-02-22] MEDS: FUROSEMIDE 20MG/2ML VIAL IVP SCH (09:29)
[2019-02-22] MEDS ORDERED: KCL 20MEQ/100ML PREMIX 100 ML IV SCH (11:00)
[2019-02-22] MEDS: INSULIN LISPRO 100 UNITS/ML SUBCUT SCH ×2 (12:00→18:39)
[2019-02-22 12:16] LABS: BG BASE EXCESS -8.5 mmol/L (-2.0-2.0); BG CARBOXYHEMOGLOBIN 0.2 % (0.5-1.5); BG DEOXYHEMOGLOBIN 3.2 % (0.0-5.0); BG HCO3 ACT 15.1 mmol/L (22.0-26.0); BG METHEMOGLOBIN 0.1 % (0.0-1.5); BG OXYGEN SATURATION 96.8 % (92.0-98.5); BG OXYHEMOGLOBIN 96.5 % (94.0-97.0); BG PH 7.383 (7.350-7.450); BG PO2 90.8 mmHg (75.0-100.0); BG SAMPLE SITE RIGHT BRACHIAL; BG TOTAL HEMOGLOBIN 10.8 g/dL (12.0-18.0); BG VENT MODE MASK - AEROSOL
[2019-02-22 12:22] LABS: NUCLEATED RED BLOOD CELLS 1 /100 WBC; PLATELET ESTIMATE MARKEDLY DECREASED
[2019-02-22] MEDS: NOREPINEPHRINE 16 MG in DEXT 5% WATER 234 ML IV PRN (18:38)
[2019-02-22] MEDS: OMEPRAZOLE 20MG CAPSULE EXTENDED RELEASE PO SCH (20:31)
[2019-02-22] MEDS ORDERED: TOTAL PARENTERAL NUTRITION 1,600 ML IV SCH (21:00)
[2019-02-23] VITALS (140 sets, daily range): BP systolic 45–114; BP diastolic 24–76
[2019-02-23] MEDS: INSULIN LISPRO 100 UNITS/ML SUBCUT SCH ×4 (00:26→18:25)
[2019-02-23] MEDS: BLOOD SUGAR DIAGNOSTIC STRIP TEST SCH ×4 (00:26→18:25)
[2019-02-23] MEDS: IPRATROPIUM/ALBUTEROL 0.5-3(2.5)MG/3ML NEB HHN SCH ×3 (01:45→14:55)
[2019-02-23] MEDS: METRONIDAZOLE 500 MG PREMIX 100 ML IV SCH ×3 (04:51→20:14)
[2019-02-23 05:56] LABS: CHLORIDE 123 mEq/L (98-107)
[2019-02-23] MEDS: CEFEPIME 1,000 MG in DEXTROSE 5% WATER 50 ML IV SCH ×2 (05:58→18:27)
[2019-02-23 06:00] LABS: HEMATOCRIT. 28.8 % (42.0-52.0); MEAN CORPUSCULAR HEMOGLOBIN 28.8 pg (28.0-32.0); MEAN CORPUSCULAR VOLUME 83.1 fL (80.0-94.0); MEAN PLATELET VOLUME 10.1 fl (7.4-10.4); RED BLOOD CELL COUNT 3.47 mill/uL (4.7-6.1); RED CELL DISTRIBUTION WIDTH 17.8 % (11.6-14.6)
[2019-02-23 06:09] LABS: PHOSPHORUS 0.5 mg/dL (2.5-4.9)
[2019-02-23 06:16] LABS: PLATELET 28 x1000/uL (130-400)
[2019-02-23 08:09] LABS: NUCLEATED RED BLOOD CELLS 1 /100 WBC; PLATELET ESTIMATE MARKEDLY DECREASED
[2019-02-23] MEDS: OMEPRAZOLE 20MG CAPSULE EXTENDED RELEASE PO SCH (09:21)
[2019-02-23] MEDS: FUROSEMIDE 20MG/2ML VIAL IVP SCH (09:21)
[2019-02-23] MEDS ORDERED: POTASSIUM PHOS,M-BASIC-D-BASIC 30 MMOL in DEXT 5% WATER 500 ML IV SCH (10:00)
[2019-02-23] MEDS ORDERED: VASOPRESSIN 10 UNIT in SODIUM CHLORIDE 0.9% 99.5 ML IV PRN (18:00)
[2019-02-23] MEDS ORDERED: TOTAL PARENTERAL NUTRITION 1,600 ML IV SCH (21:00)
[2019-02-23] MEDS: NOREPINEPHRINE 16 MG in DEXT 5% WATER 234 ML IV PRN (21:28)
== END 2019-02-23 22:29 | disposition expired | DRG 870 ==
LOC: ER 10:42 → CVICU 13:04 → EDBEDREQTM 13:19 → EDBEDREQSVC 13:19 → EDBEDREQ 13:19 → ENRESERV 13:22
PROVIDERS: ADMIT Internal Medicine; ATTEND Internal Medicine
PROC: 5A1955Z Respiratory Ventilation, Greater than 96 Consecutive Hours (ICD-10-PCS; principal; 2019-02-17)
PROC: 02HV33Z Insertion of Infusion Device into Superior Vena Cava, Percutaneous Approach (ICD-10-PCS; 2019-02-17)
PROC: B548ZZA Ultrasonography of Superior Vena Cava, Guidance (ICD-10-PCS; 2019-02-17)
PROC: 0BH17EZ Insertion of Endotracheal Airway into Trachea, Via Natural or Artificial Opening (ICD-10-PCS; 2019-02-17)
PROC: 30233K1 Transfusion of Nonautologous Frozen Plasma into Peripheral Vein, Percutaneous Approach (ICD-10-PCS; 2019-02-17)
PROC: 30233N1 Transfusion of Nonautologous Red Blood Cells into Peripheral Vein, Percutaneous Approach (ICD-10-PCS; 2019-02-17)
DX: A41.9 Sepsis, unspecified organism (principal); N17.0 Acute kidney failure with tubular necrosis; E43 Unspecified severe protein-calorie malnutrition; J96.00 Acute respiratory failure, unspecified whether with hypoxia or hypercapnia; G93.41 Metabolic encephalopathy; M62.82 Rhabdomyolysis; E87.0 Hyperosmolality and hypernatremia; D68.9 Coagulation defect, unspecified; K92.1 Melena; C18.9 Malignant neoplasm of colon, unspecified; C78.00 Secondary malignant neoplasm of unspecified lung; C78.7 Secondary malignant neoplasm of liver and intrahepatic bile duct; R57.8 Other shock; E87.5 Hyperkalemia; E16.2 Hypoglycemia, unspecified; E86.0 Dehydration; D50.0 Iron deficiency anemia secondary to blood loss (chronic); E78.1 Pure hyperglyceridemia; F14.10 Cocaine abuse, uncomplicated; J45.909 Unspecified asthma, uncomplicated; Z66 Do not resuscitate; D69.6 Thrombocytopenia, unspecified; R74.0 Nonspecific elevation of levels of transaminase and lactic acid dehydrogenase [LDH]; L89.219 Pressure ulcer of right hip, unspecified stage; R65.20 Severe sepsis without septic shock; Z86.73 Personal history of transient ischemic attack (TIA), and cerebral infarction without residual deficits; Z93.2 Ileostomy status; Z93.3 Colostomy status; Z79.899 Other long term (current) drug therapy; Z68.25 Body mass index [BMI] 25.0-25.9, adult
CPT/HCPCS: 36415; 36569; 36600; 71045; 76770; 76937; 80048; 80061; 80076; 80305; 80320; 82140; 82330; 82375; 82550; 82553; 82570; 82805; 82962; 83605; 83735; 83880; 84100; 84134; 84156; 84443; 84478; 84484; 85384; 86850; 86900; 86920; 86927; 87070; 93005; 93970; 94002; 94003; 94640; 96374; 96375; 99291; C1725; C1769; C9113; J0330; J0692; J1815; J1940; J2060; J2370; J2704; J3411; J3430; J3480; J3490; J7030; J7040; J7050; J7060; J7620; P9016; P9017; P9021; A4315; G0480